=== PATIENT | male | born 1985 | race American Indian/Alaskan Native ===

== ENCOUNTER 2019-10-07 16:38 | Emergency (ER) | payer SELFPAY ==
--- NOTE | 2019-10-07 17:07 | Emergency Department Report ---
ED Psych HPI - General Stated Complaint: SI Time Seen by Provider: 10/07/19 16:53 - History of Present Illness Initial Comments: Patient is a 34-year-old F [place] male with past medical history of schizophrenia who is presenting with suicidal ideations. Patient denies having a plan. Patient states he has been noncompliant with his medications since he "cannot get them". Patient does admit to polysubstance abuse. Patient states that drugs, in particular methamphetamines, is his medicine. States the methamphetamine "it just comes freely ". Patient states that the auditory hallucinations are telling him to kill himself. He denies any homicidal ideations at this time. Patient has no other complaints. - Related Data Allergies Allergy/AdvReac Type Severity Reaction Status Date / Time No Known Allergies Allergy Unverified 10/07/19 17:09 ED Review of Systems ROS: Stated complaint: SI Other details as noted in HPI Comment: All other systems reviewed and negative ED Physical Exam - General General appearance: alert, in no apparent distress - Head Head exam: Present: atraumatic, normocephalic - Eye Eye exam: Present: normal appearance, PERRL, EOMI - ENT ENT exam: Present: mucous membranes moist - Neck Neck exam: Present: normal inspection - Respiratory Respiratory exam: Present: normal lung sounds bilaterally. Absent: respiratory distress, wheezes, rales, rhonchi - Cardiovascular Cardiovascular Exam: Present: regular rate, normal rhythm, normal heart sounds. Absent: systolic murmur, diastolic murmur, rubs, gallop - GI/Abdominal GI/Abdominal exam: Present: soft, normal bowel sounds. Absent: distended, tenderness, guarding, rebound - Rectal Rectal exam: Present: deferred - Extremities Exam Extremities exam: Present: normal inspection - Back Exam Back exam: Present: normal inspection - Neurological Exam Neurological exam: Present: alert, oriented X3 - Psychiatric Psychiatric exam: Present: normal mood, flat affect, suicidal ideation - Skin Skin exam: Present: warm, dry, intact, normal color. Absent: rash ED Course Vital Signs 10/07/19 17:11 Respiratory 18 Rate ED Medical Decision Making - Lab Data Result diagrams: 10/07/19 17:00 10/07/19 17:00 - Medical Decision Making Patient has been medically cleared by our psychiatric evaluation team. Patient just left another hospital and was medically cleared there. Patient seems to be using suicidality as a way to mitigate his homelessness. Patient also is choosing drugs over actual treatment at this time. Mental health assessment team does not feel as though the patient is at risk of suicide is contracted him for safety. Please see the comments below. JAILYN COLLINS Male : 1985 [facility]# [id number] 10/07/19 17:50 - MH Cork Grinder's [facility]: [id number] : 1985 Patient Age: 34 Pt is a 34 yo AA male presenting to ED for MHE, as pt reported SI w/o plan, polysubstane abuse. During ax, pt presented with uncooperative behaviors, anxious mood and congruent affect. Pt was defensive during ax, requiring some prompting to engage. Pt reports onset of SI without a plan, polysubstance abuse. Pt identified trigger of being homeless and increased drug abuse. Pt reports daily SI, drug abuse and stated, I just feel like I can't get it together". Pt denies hx of attempts. Pt denies HI. Pt reports A/V H. Pt reports voices are saying negative and positive things. Pt reports seeing squares. Pt hx of mental health dx of depression and ADHD. Pt identified cocaine, meth, and alcohol abuse. Pt reports meth use dailly since age 31. Pt unable to provide amount. PT reports using a 1-2 grams daily since age 18. Pt reports drinking a 6 pack of beer daily since age 14. Denies hx of withdrawal. Pt reports homelessness. Pt denies legal problems. Pt discharged from [facility] 10/07/19. Pt stated "they wouldn't help me"". Recommendations: At this time pt presents with active SI without a plan, polysubstance abuse. Pt does not meet criteria for iP Tx. Pt provided referrals for OP Tx. Initialized on 10/07/19 17:50 - END OF NOTE Critical care attestation.: If time is entered above; I have spent that time in minutes in the direct care of this critically ill patient, excluding procedure time. ED Disposition Clinical Impression: Polysubstance (excluding opioids) dependence, Passive suicidal ideations, Homelessness Disposition: DC-01 TO HOME OR SELFCARE Is pt being admited?: No Does the pt Need Aspirin: No Condition: Stable Instructions: Polysubstance Abuse (ED) Referrals: ANIKET OLIVEIRA MD [Primary Care Provider] - 3-5 Days Time of Disposition: 18:41
[2019-10-07 17:20] LABS: Bilirubin,Urine NEG (Negative); Blood,Urine NEG (Negative); Color,Urine Yellow (Yellow); Protein,Urine <15 mg/dL mg/dL (Negative); WBC,Urine < 1.0 /HPF (0.0-6.0)
[2019-10-07 17:27] LABS: Amphetamine Screen,Urine PRESUMPTIVE NEGATIVE; Benzodiazepines Screen,Urine PRESUMPTIVE NEGATIVE; Cannabinoid Screen,Urine PRESUMPTIVE NEGATIVE; Methadone Screen,Urine PRESUMPTIVE NEGATIVE; Opiate Screen,Urine PRESUMPTIVE NEGATIVE
[2019-10-07 17:44] LABS: Cocaine Screen,Urine PRESUMPTIVE POSITIVE
[2019-10-07 17:49] LABS: Basophils % (Auto) 0.5 % (0.0-1.8); Eosinophils # (Auto) 0.2 K/mm3 (0.0-0.4); Eosinophils % (Auto) 2.2 % (0.0-4.3); Hematocrit 43.4 % (35.5-45.6); Hemoglobin 14.8 gm/dl (11.8-15.2); Lymphocytes # (Auto) 2.8 K/mm3 (1.2-5.4); Lymphocytes % (Auto) 41.5 % (13.4-35.0); Mean Corpuscular HGB Conc 34 % (32-34); Mean Corpuscular Volume 95 fl (84-94); Monocytes # (Auto) 0.4 K/mm3 (0.0-0.8); Monocytes % (Auto) 6.5 % (0.0-7.3); Platelet Count 379 K/mm3 (140-440); Red Blood Count 4.55 M/mm3 (3.65-5.03); Red Cell Distribution Width 14.5 % (13.2-15.2)
[2019-10-07 18:08] LABS: BUN/Creatinine Ratio 15; Blood Urea Nitrogen 18 mg/dL (9-20); Calcium 9.4 mg/dL (8.4-10.2); Hemolysis Index 13
[2019-10-07 18:48] VITALS: BP 111/76
== END 2019-10-07 19:24 | disposition home or self-care (01) ==
LOC: ED 16:38
DX: F19.20 Other psychoactive substance dependence, uncomplicated (principal); R45.851 Suicidal ideations; F20.9 Schizophrenia, unspecified
CPT/HCPCS: 36415; 80048; 80307; 80320; 81001; 85025; G0480

== ENCOUNTER 2019-10-07 22:42 | Emergency (ER) | payer SELFPAY ==
--- NOTE | 2019-10-08 00:29 | Emergency Department Report ---
ED Psych HPI - General Chief Complaint: Psych Stated Complaint: SI/MH Time Seen by Provider: 10/07/19 23:53 Source: patient Mode of arrival: Ambulatory - History of Present Illness Initial Comments: Patient is a 34-year-old F Citizen Of [place] male who is presenting with suicidal ideations. Patient was here several hours ago and was seen by our mental health fighting vehicle infantryman. They believe that the patient had secondary gain to being here secondary to him being homeless. Patient stated he had no plan and he was contracted for safety and discharge. Patient also has a history of polysubsta nce abuse using drugs instead of taking his medications. Patient's since leaving states that he walked out of traffic. Patient was not struck by car. Patient came back stating that he is suicidal and would like to go to a mental health facility. - Related Data Allergies Allergy/AdvReac Type Severity Reaction Status Date / Time No Known Allergies Allergy Unverified 10/07/19 17:09 ED Review of Systems ROS: Stated complaint: SI/MH Other details as noted in HPI Comment: All other systems reviewed and negative ED Past Medical Hx - Past Medical History Previous Medical History?: Yes Hx Psychiatric Treatment: Yes (schizo/bipolar) - Social History Smoking Status: Current Every Day Smoker Substance Use Type: Alcohol, Cocaine, Marijuana ED Physical Exam - General Limitations: No Limitations General appearance: alert, in no apparent distress - Head Head exam: Present: atraumatic, normocephalic - Eye Eye exam: Present: normal appearance - ENT ENT exam: Present: mucous membranes moist - Neck Neck exam: Present: normal inspection - Respiratory Respiratory exam: Present: normal lung sounds bilaterally. Absent: respiratory distress, wheezes, rales, rhonchi - Cardiovascular Cardiovascular Exam: Present: regular rate, normal rhythm. Absent: systolic murmur, diastolic murmur, rubs, gallop - GI/Abdominal GI/Abdominal exam: Present: soft, normal bowel sounds. Absent: distended, tenderness, guarding, rebound - Rectal Rectal exam: Present: deferred - Extremities Exam Extremities exam: Present: normal inspection - Back Exam Back exam: Present: normal inspection - Neurological Exam Neurological exam: Present: alert, oriented X3 - Psychiatric Psychiatric exam: Present: normal affect, normal mood - Skin Skin exam: Present: warm, dry, intact, normal color. Absent: rash ED Course Vital Signs 10/07/19 22:44 Temperature 98.1 F Pulse Rate 75 Respiratory 18 Rate Blood Pressure 130/79 O2 Sat by Pulse 98 Oximetry - Reevaluation(s) Reevaluation #1: 10/08/19 00:28 Patient has been placed on mental health hold until the patient can see our mental health fighting vehicle infantryman again for reevaluation ED Medical Decision Making - Lab Data Patient has been medically cleared. Please see the laboratory studies from his previous visit. Labs have been drawn and resulted within 24 hours of this visit Critical care attestation.: If time is entered above; I have spent that time in minutes in the direct care of this critically ill patient, excluding procedure time. ED Disposition Condition: Stable
[2019-10-08 08:50] VITALS: BP 133/85
[2019-10-08 09:53] LABS: Basophils % (Auto) 0.5 % (0.0-1.8); Eosinophils # (Auto) 0.1 K/mm3 (0.0-0.4); Eosinophils % (Auto) 2.2 % (0.0-4.3); Hematocrit 43.9 % (35.5-45.6); Hemoglobin 14.7 gm/dl (11.8-15.2); Lymphocytes # (Auto) 2.6 K/mm3 (1.2-5.4); Lymphocytes % (Auto) 47.3 % (13.4-35.0); Mean Corpuscular HGB Conc 33 % (32-34); Mean Corpuscular Volume 94 fl (84-94); Monocytes # (Auto) 0.4 K/mm3 (0.0-0.8); Monocytes % (Auto) 7.8 % (0.0-7.3); Platelet Count 339 K/mm3 (140-440); Red Blood Count 4.66 M/mm3 (3.65-5.03); Red Cell Distribution Width 14.3 % (13.2-15.2)
[2019-10-08 10:12] LABS: BUN/Creatinine Ratio 14; Blood Urea Nitrogen 14 mg/dL (9-20); Calcium 9.1 mg/dL (8.4-10.2); Hemolysis Index 23
== END 2019-10-08 11:59 | disposition home or self-care (01) ==
LOC: ED 22:42
DX: F31.9 Bipolar disorder, unspecified (principal); F20.89 Other schizophrenia; F17.200 Nicotine dependence, unspecified, uncomplicated; F12.10 Cannabis abuse, uncomplicated; F14.10 Cocaine abuse, uncomplicated; Z59.0 Homelessness
CPT/HCPCS: 36415; 80048; 80320; 85025; G0480